=== PATIENT | male | born 1965 | race Caucasian/White ===

== ENCOUNTER 2021-04-28 11:40 | Day surgery (SDC) | payer OTHER ==
[2021-04-27 13:45] VITALS: BMI 28.4
[2021-04-28 12:45] VITALS: TEMP 98.6
[2021-04-28 13:10] VITALS: BP 131/71; PULSE 71
== END 2021-04-28 13:10 | disposition home or self-care (01) ==
LOC: FASU-ENDO 11:40
PROVIDERS: ATTEND Internal Medicine Gastroenterology
PROC: 0DBL8ZX Excision of Transverse Colon, Via Natural or Artificial Opening Endoscopic, Diagnostic (ICD-10-PCS; 2021-04-28)
PROC: 0DBN8ZX Excision of Sigmoid Colon, Via Natural or Artificial Opening Endoscopic, Diagnostic (ICD-10-PCS; 2021-04-28)
PROC: 0DBP8ZX Excision of Rectum, Via Natural or Artificial Opening Endoscopic, Diagnostic (ICD-10-PCS; 2021-04-28)
PROC: 0DBM8ZX Excision of Descending Colon, Via Natural or Artificial Opening Endoscopic, Diagnostic (ICD-10-PCS; 2021-04-28)
PROC: 0DBH8ZX Excision of Cecum, Via Natural or Artificial Opening Endoscopic, Diagnostic (ICD-10-PCS; 2021-04-28)
PROC: 0DBK8ZX Excision of Ascending Colon, Via Natural or Artificial Opening Endoscopic, Diagnostic (ICD-10-PCS; principal; 2021-04-28 12:15)
DX: K58.9 Irritable bowel syndrome, unspecified (principal); K64.8 Other hemorrhoids; K57.30 Diverticulosis of large intestine without perforation or abscess without bleeding; K52.82 Eosinophilic colitis
CPT/HCPCS: 82962; 88305-TC

== ENCOUNTER 2023-12-20 09:34 | Day surgery (SDC) | payer BC ==
[2023-12-09 16:08] VITALS: BMI 28.3
[2023-12-20] MEDS ORDERED: PROPOFOL 80 ML ONE (09:57)
[2023-12-20] MEDS ORDERED: LIDOCAINE HCL/PF 2% SDV 5ML VIAL ONE (09:57)
[2023-12-20 11:57] VITALS: TEMP 98
[2023-12-20 11:59] VITALS: BP 124/88; PULSE 73; RESP 18
== END 2023-12-20 11:15 | disposition home or self-care (01) ==
LOC: FASU-ENDO 09:34
PROVIDERS: ATTEND Internal Medicine Gastroenterology
PROC: 0DBL8ZX Excision of Transverse Colon, Via Natural or Artificial Opening Endoscopic, Diagnostic (ICD-10-PCS; 2023-12-20)
PROC: 0DBN8ZX Excision of Sigmoid Colon, Via Natural or Artificial Opening Endoscopic, Diagnostic (ICD-10-PCS; 2023-12-20)
PROC: 0DBP8ZX Excision of Rectum, Via Natural or Artificial Opening Endoscopic, Diagnostic (ICD-10-PCS; 2023-12-20)
PROC: 0DBM8ZX Excision of Descending Colon, Via Natural or Artificial Opening Endoscopic, Diagnostic (ICD-10-PCS; 2023-12-20)
PROC: 0DBK8ZX Excision of Ascending Colon, Via Natural or Artificial Opening Endoscopic, Diagnostic (ICD-10-PCS; principal; 2023-12-20 10:41)
DX: K64.1 Second degree hemorrhoids (principal); K64.8 Other hemorrhoids; K57.30 Diverticulosis of large intestine without perforation or abscess without bleeding; Z87.19 Personal history of other diseases of the digestive system
CPT/HCPCS: 82962; 88305-TC